=== PATIENT | female | born 1995 | race African-American/Black ===

== ENCOUNTER 2024-11-01 08:59 | Emergency (ER) | payer BC, MEDICAID ==
[~2024-11-01] VITALS: Ht 170.2 cm; Wt 49.9 kg
[2024-11-01 09:38] VITALS: BP 118/76; TEMP 98.4
[2024-11-01 09:57] VITALS: O2SAT 98
== END 2024-11-01 10:01 | disposition home or self-care (01) ==
LOC: ER 09:08
DX: S91.131A Puncture wound without foreign body of right great toe without damage to nail, initial encounter (principal); W22.03XA Walked into furniture, initial encounter; Y93.89 Activity, other specified; Y92.89 Other specified places as the place of occurrence of the external cause; Y99.8 Other external cause status